=== PATIENT | female | born 1995 | race Native Hawaiian/Other Pacific Islander ===

== ENCOUNTER 2016-11-23 07:10 | Day surgery (SDC) | payer OTHER ==
[2016-11-23 08:03] VITALS: BMI 20.9
[2016-11-23] MEDS ORDERED: Lactated Ringer's 500 ML IV ONE (08:06)
[2016-11-23] MEDS ORDERED: Propofol 10 mg/ml Inj (20 ML) ONE (08:56)
[2016-11-23] MEDS ORDERED: Midazolam 2 MG/2 ML VIAL ONE (08:56)
[2016-11-23 09:53] VITALS: BP 100/62; PULSE 79; RESP 21; TEMP 97.6; O2SAT 100
== END 2016-11-23 11:50 | disposition home or self-care (01) ==
LOC: H.ENDO 07:10
PROVIDERS: ATTEND Internal Medicine Gastroenterology
DX: K29.50 Unspecified chronic gastritis without bleeding (principal); K44.9 Diaphragmatic hernia without obstruction or gangrene; K30 Functional dyspepsia; K21.9 Gastro-esophageal reflux disease without esophagitis; Z82.49 Family history of ischemic heart disease and other diseases of the circulatory system; Z83.3 Family history of diabetes mellitus